=== PATIENT | female | born 1990 | race African-American/Black ===

== ENCOUNTER 2017-04-29 11:45 | Emergency (ER) | payer SELFPAY ==
[~2017-04-29 11:45] MED LIST: ZOFR4TAB3 SL
[2017-04-29 11:47] VITALS: BP 120/81; PULSE 62; RESP 16; TEMP 98.7; O2SAT 100
--- NOTE | 2017-04-29 12:11 | PD ---
HPI Chief Complaint: Eye Problems/Injury Time Seen by Provider: 11:58 Travel History International Travel<30 days: No Contact w/Intl Traveler<30days: No Traveled to known affect area: No History of Present Illness HPI 26-year-old female presents to emergency department complaining of right retro- ocular discomfort for approximately 2 years. Patient states she came in today because she is sick of dealing with the discomfort. States that she wakes up in the morning washes her face and notices this discomfort. Patient denies dizziness, vision loss, blurriness, aura, headache, trauma, foreign body sensation, history of glaucoma, nausea, vomiting. Patient denies chronic medical issues or medication use. She states that she has chronic sinus issues and this may be the cause of her discomfort. States the discomfort increases with coughing. Physical history of migraines and believes that the discomfort she has is related to this. She has not seen her primary care doctor about this issue. PFSH Past Medical History Diminished Hearing: No Reproductive: Yes (BREAST LUMP?) ?: Unknown Menopausal: No : 0 Para: 0 Miscarriage: 0 : 0 Past Surgical History Oral Surgery: Yes (WISDOM TEETH REMOVED) Other Surgery: Yes (WISDOM TEETH REMOVED) Social History Alcohol Use: Yes (OCCASIONALLY) Tobacco Use: Yes (3 CIGARETTES DAILY) Substance Use: Yes (MARIJUANA) Allergies-Medications (Allergen,Severity, Reaction): Coded Allergies: lactulose (Unverified Allergy, Mild, 01/14/17) Reported Meds & Prescriptions Reported Meds & Active Scripts Active Zofran ODT (Ondansetron HCl) 4 Mg Tab 4 Mg SL Q6HR FOR NAUSEA/VOMITING Review of Systems Except as stated in HPI: all other systems reviewed are Neg Physical Exam Narrative GENERAL: WD WN in NAD SKIN: Warm and dry. HEAD: Atraumatic. Normocephalic. EYES: Pupils equal and round. No scleral icterus. No injection or drainage. EOMI , no ptosis, no proptosis ENT: No nasal bleeding or discharge. Mucous membranes pink and moist. Non tender sinuses NECK: Trachea midline. No JVD. No lymphadenopathy CARDIOVASCULAR: Regular rate and rhythm. RESPIRATORY: No accessory muscle use. Clear to auscultation. Breath sounds equal bilaterally. GASTROINTESTINAL: Abdomen soft, non-tender, nondistended. MUSCULOSKELETAL: Extremities without clubbing, cyanosis, or edema. No obvious deformities. NEUROLOGICAL: Awake and alert. No obvious cranial nerve deficits. Motor grossly within normal limits. Five out of 5 muscle strength in the arms and legs. Normal speech. PSYCHIATRIC: Appropriate mood and affect; insight and judgment normal. Data Data Last Documented VS Vital Signs Date Time Temp Pulse Resp B/P (MAP) Pulse Ox O2 Delivery O2 Flow Rate FiO2 04/29/17 11:47 98.7 62 16 120/81 (94) 100 Room Air MDM Medical Decision Making Medical Screen Exam Complete: Yes Emergency Medical Condition: No Differential Diagnosis Retro-ocular migraine versus sinusitis versus glaucoma Narrative Course 26-year-old female presents to emergency department complaining of right retro- ocular discomfort for approximately 2 years. Patient states she came in today because she is sick of dealing with the discomfort. States that she wakes up in the morning washes her face and notices this discomfort. Patient denies dizziness, vision loss, blurriness, aura, headache, trauma, foreign body sensation, history of glaucoma, nausea, vomiting. Patient denies chronic medical issues or medication use. She states that she has chronic sinus issues and this may be the cause of her discomfort. States the discomfort increases with coughing. Physical history of migraines and believes that the discomfort she has is related to this. She has not seen her primary care doctor about this issue. Vital signs stable. Because of the history and physical and chronicity of this issue, patient will be discharged to follow up with [facility] and eye doctor. Patient states she has not taken any medication help relieve her pain at this time no has she seen a primary care doctor about this. I recommended that this was the best course of action and that there was nothing I could do for her today to solve her chronic discomfort of the retro ocular area. I spent an extended amount of time stressing the importance of seeing a specialist and a PCP who can follow her outpatient. She agreed with the plan and will follow up with [facility]. A medical screening exam was performed: At the time of evaluation the presenting medical condition was determined not to be of an emergent nature. The patient was given the option of receiving additional care, but declined. Patient was given options for additional community resources from which to obtain care. The Patient Has Been advised to seek medical attention for their presenting complaint. The patient has been advised to return to the ER at any time if an emergent condition develops. Diagnosis Primary Impression: Encounter for medical screening examination Disposition: 01 DISCHARGE HOME Condition: Stable Janet Mata Apr 29, 2017 12:11
== END 2017-04-29 12:18 | disposition left against medical advice (07) ==
LOC: NEPK 11:45
DX: H57.8 Other specified disorders of eye and adnexa (principal)
CPT/HCPCS: 99281